=== PATIENT | female | born 2000 | race American Indian/Alaskan Native ===

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

== ENCOUNTER 2020-09-08 21:16 | Emergency (ER) | payer SELFPAY ==
[2020-09-08 23:48] LABS: Blood Urea Nitrogen 14 mg/dL (7-17); Calcium 8.7 mg/dL (8.4-10.2); Hemolysis Index 0
[2020-09-08 23:50] LABS: BUN/Creatinine Ratio 23
[2020-09-08 23:51] LABS: Basophils % (Auto) 0.7 % (0.0-1.8); Eosinophils % (Auto) 0.4 % (0.0-4.3); Hematocrit 37.9 % (30.3-42.9); Hemoglobin 12.6 gm/dl (10.1-14.3); Lymphocytes # (Auto) 2.1 K/mm3 (1.2-5.4); Mean Corpuscular HGB Conc 33 % (30-34); Mean Corpuscular Volume 86 fl (79-97); Monocytes # (Auto) 0.5 K/mm3 (0.0-0.8); Monocytes % (Auto) 8.6 % (0.0-7.3); Platelet Count 248 K/mm3 (140-440); Red Blood Count 4.42 M/mm3 (3.65-5.03); Red Cell Distribution Width 15.5 % (13.2-15.2)
[2020-09-09] MEDS ORDERED: ACETAMINOPHEN 500 MG TAB PO ONE (02:36)
--- NOTE | 2020-09-09 02:40 | Emergency Department Report ---
ED General Adult HPI - General Chief complaint: Abdominal Pain Stated complaint: SORE THROAT,ABD PAIN PUI?: Yes Time Seen by Provider: 09/09/20 02:20 Source: patient Mode of arrival: Ambulatory Limitations: No Limitations - History of Present Illness Initial comments: 20-year-old female with no significant past medical history presents to the ER today with flulike symptoms. Patient states that symptoms started about 4 days ago. She reports rhinorrhea, nasal congestion, sore throat, dry cough, headache, lower abdominal pain and fever. She states that her highest temperature was 105. She has been taking Tylenol ibuprofen. Reports urinary frequency but denies any dysuria or hematuria. She denies any nausea, vomiting or diarrhea. She denies any abnormal vaginal discharge. She denies any ill contacts or recent travel. Her last menstrual cycle was August 21, 2020. She is currently on control. She states that she did have the [employer] Covid vaccine and completed the series last month. She states that since she has been sick she has not taken another Covid test. MD Complaint: Abdominal pain/urinary symptoms/sore throat -: days(s) (5 days ago) - Related Data Previous Rx's Medication Instructions Recorded Last Taken Type Amoxicillin/Potassium Clav 1 each PO Q12HR #14 tablet 09/09/20 Unknown Rx [Augmentin 875-125 Tablet] Ibuprofen [Motrin 600 MG tab] 600 mg PO Q8H PRN #30 tablet 09/09/20 Unknown Rx Allergies Allergy/AdvReac Type Severity Reaction Status Date / Time No Known Allergies Allergy Unverified 11/08/13 17:06 ED Review of Systems ROS: Stated complaint: SORE THROAT,ABD PAIN Other details as noted in HPI Comment: All other systems reviewed and negative Constitutional: chills, fever ENT: throat pain, congestion, other (Rhinorrhea) Respiratory: cough. denies: shortness of breath, SOB with exertion, SOB at rest, stridor, wheezing Cardiovascular: denies: chest pain, palpitations, dyspnea on exertion, orthopnea, edema, syncope, paroxysmal nocturnal dyspnea Gastrointestinal: abdominal pain. denies: nausea, vomiting, diarrhea, constipation, hematemesis, melena, hematochezia Genitourinary: frequency. denies: urgency, dysuria, hematuria, discharge, abnormal menses, dyspareunia Musculoskeletal: denies: back pain, joint swelling, arthralgia Skin: denies: rash, lesions, change in color, change in hair/nails, pruritus Neurological: as per HPI. denies: numbness, paresthesias, confusion, abnormal gait Psychiatric: denies: anxiety, depression, auditory hallucinations, visual hallucinations, homicidal thoughts, suicidal thoughts Hematological/Lymphatic: denies: easy bleeding, easy bruising ED Past Medical Hx - Past Medical History Previous Medical History?: No Additional medical history: septal defect, heart murmur - Surgical History Past Surgical History?: No Hx Open Heart Surgery: Yes (as a child) - Social History Smoking Status: Never Smoker Substance Use Type: None - Medications Home Medications: Home Medications Medication Instructions Recorded Confirmed Last Taken Type Amoxicillin/Potassium Clav 1 each PO Q12HR #14 tablet 09/09/20 Unknown Rx [Augmentin 875-125 Tablet] Ibuprofen [Motrin 600 MG tab] 600 mg PO Q8H PRN #30 tablet 09/09/20 Unknown Rx ED Physical Exam - General Limitations: No Limitations General appearance: alert, in no apparent distress - Head Head exam: Present: atraumatic, normocephalic, normal inspection - Eye Eye exam: Present: normal appearance, PERRL Pupils: Present: normal accommodation - ENT ENT exam: Present: normal exam, mucous membranes moist - Expanded ENT Exam Expanded Mouth exam: Present: normal external inspection Throat exam: Positive: normal inspection, tonsillar erythema. Negative: tonsillomegaly, tonsillar exudate, R peritonsillar mass, L peritonsillar mass - Neck Neck exam: Present: normal inspection, lymphadenopathy (Mild anterior cervical). Absent: meningismus - Respiratory Respiratory exam: Present: normal lung sounds bilaterally. Absent: respiratory distress, wheezes, rales, rhonchi, stridor - Cardiovascular Cardiovascular Exam: Present: regular rate, normal rhythm, normal heart sounds - GI/Abdominal GI/Abdominal exam: Present: soft, tenderness (Mild diffuse lower abdominal tenderness without guarding or rebound.). Absent: distended - Neurological Exam Neurological exam: Present: alert, oriented X3, CN II-XII intact, normal gait - Psychiatric Psychiatric exam: Present: normal affect, normal mood - Skin Skin exam: Present: intact ED Course Vital Signs 09/08/20 22:46 Temperature 98.7 F Pulse Rate 69 Respiratory 17 Rate Blood Pressure 114/72 O2 Sat by Pulse 100 Oximetry ED Medical Decision Making - Lab Data Result diagrams: 09/08/20 22:55 09/08/20 22:55 - Radiology Data Radiology results: report reviewed Patient: ALDEN PERRY MR#: [id number] : 2000 Acct:[id number] Age/Sex: 20 / F ADM Date: 09/08/20 Loc: ED Attending Dr: Ordering Physician: SHANTELLE FRANKLIN Date of Service: 09/09/20 Procedure(s): XR chest routine 2V Accession Number(s): [id number] cc: SHANTELLE FRANKLIN Fluoro Time In Minutes: XR chest routine 2V INDICATION / CLINICAL INFORMATION: Cough. COMPARISON: None available. FINDINGS: SUPPORT DEVICES: None. HEART /PULMONARY VASCULATURE: No significant abnormality. LUNGS / PLEURA: No significant pulmonary or pleural abnormality. No pneumothorax. ADDITIONAL FINDINGS: No significant additional findings. IMPRESSION: 1. No acute findings. Signer Name: Jim Kramer MD Signed: 09/09/2020 3:30 AM Workstation Name: [id number] Transcribed By: JANUSZ Dictated By: JIM KRAMER MD Electronically Authenticated By: JIM KRAMER MD Signed Date/Time: 09/09/20329 DD/ 8 TD/TT: - Medical Decision Making 20-year-old female with no significant past medical history presents to the ER today with flulike symptoms. Patient states that symptoms started about 4 days ago. She reports rhinorrhea, nasal congestion, sore throat, dry cough, headache, lower abdominal pain and fever. She states that her highest temperature was 105. She has been taking Tylenol ibuprofen. Reports urinary frequency but denies any dysuria or hematuria. She denies any nausea, vomiting or diarrhea. She denies any abnormal vaginal discharge. She denies any ill contacts or recent travel. Her last menstrual cycle was August 21, 2020. She is currently on control. She states that she did have the [employer] Covid vaccine and completed the series last month. She states that since she has been sick she has not taken another Covid test. 0509: Labs reviewed and unremarkable. Chest x-ray shows nothing acute. Patient observed walking up and down in the room, anxious and ready to leave, s he does not appear to be in any acute pain or respiratory distress. Repeat abdominal exam showed soft nontender abdomen. She is tolerating her secretions well without any drooling or trismus. She is not toxic or ill-appearing. She is mentally stable and neurologically intact. Discussed lab results and chest x-ray results with patient. Suspect the symptoms are related to a viral illness at this time but will cover with antibiotics for possible strep throat. Her history, exam, diagnostic testing and current condition do not demonstrate an infectious process such as meningitis, severe pneumonia, retropharyngeal abscess, epiglottitis, acute appendicitis, bowel obstruction, acute cholecysti tis, bowel perforation, PID, tubo-ovarian abscess, ovarian torsion, volvulus, sepsis or other serious bacterial infection requiring further testing, treatment, consultation or admission at this time. The vital signs have been stable. Discussed suspected diagnosis and treatment plan with patient. I did recommend that she get an outpatient COVID-19 test. Patient expressed understanding of instructions and agree with plan. Patient stable at time of discharge. Critical care attestation.: If time is entered above; I have spent that time in minutes in the direct care of this critically ill patient, excluding procedure time. ED Disposition Clinical Impression: Viral syndrome, Pharyngitis Disposition: DC-01 TO HOME OR SELFCARE Is pt being admited?: No Does the pt Need Aspirin: No Condition: Stable Instructions: Pharyngitis, Viral Illness, Adult, Abdominal Pain (ED) Additional Instructions: I recommend you increase your water intake. Take the Augmentin as prescribed, for possible strep throat and take ibuprofen as needed for pain. I recommend that you get an outpatient Covid test. follow-up closely with your primary care doctor if you do not have one, 1 has been provided to you on your discharge instructions. Return to the ER if your symptoms changes or worsens in any way. Prescriptions: Amoxicillin/Potassium Clav [Augmentin 875-125 Tablet] 1 each PO Q12HR #14 tablet Ibuprofen [Motrin 600 MG tab] 600 mg PO Q8H PRN #30 tablet PRN Reason: Pain Referrals: [facility] [Provider Group] - 3-5 Days Forms: Work/School Release Form(ED) Time of Disposition: 05:05
--- NOTE | 2020-09-09 03:34 | XRay Report ---
XR chest routine 2V INDICATION / CLINICAL INFORMATION: Cough. COMPARISON: None available. FINDINGS: SUPPORT DEVICES: None. HEART /PULMONARY VASCULATURE: No significant abnormality. LUNGS / PLEURA: No significant pulmonary or pleural abnormality. No pneumothorax. ADDITIONAL FINDINGS: No significant additional findings. IMPRESSION: 1. No acute findings. Signer Name: Matthew Kramer MD Signed: 09/09/2020 3:30 AM Workstation Name: [email or web address]
[2020-09-09 03:43] LABS: Alanine Aminotransferase 20 units/L (7-56); Albumin 4.2 g/dL (3.9-5); Bilirubin,Direct < 0.2 mg/dL (0-0.2)
[2020-09-09 03:44] LABS: Bacteria,Urine 1+ /HPF (Negative); Bilirubin,Urine NEG (Negative); Blood,Urine SM (Negative); Color,Urine Yellow (Yellow); Mucus,Urine FEW /HPF; Protein,Urine <15 mg/dL mg/dL (Negative)
[2020-09-09 06:02] VITALS: BP 117/69
== END 2020-09-09 05:30 | disposition home or self-care (01) ==
LOC: ED 21:16
DX: B34.9 Viral infection, unspecified (principal); J02.9 Acute pharyngitis, unspecified; Z79.899 Other long term (current) drug therapy
CPT/HCPCS: 36415; 71046; 80048; 80076; 81001; 83690; 84703; 85025; 99284

== ENCOUNTER 2021-04-16 04:00 | Emergency (ER) | payer SELFPAY ==
[2021-04-16] MEDS ORDERED: HYDROcodone/ACETAMINOPHEN 5-325 MG TAB PO STA (05:47)
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
[2021-04-16 06:17] VITALS: BP 130/73
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
== END 2021-04-16 06:45 | disposition home or self-care (01) ==
LOC: ED 04:00
DX: M79.10 Myalgia, unspecified site (principal); R07.81 Pleurodynia; V89.2XXA Person injured in unspecified motor-vehicle accident, traffic, initial encounter; Y93.89 Activity, other specified; Y92.89 Other specified places as the place of occurrence of the external cause; Y99.8 Other external cause status
CPT/HCPCS: 99283